=== PATIENT | male | born 1975 | race Two or more races ===

== ENCOUNTER → 2016-08-10 | Outpatient (REF) | payer MEDICARE, MEDICAID | LOC: M LAB REF 16:35 | PROVIDERS: ATTEND Nurse Practitioner Family | DX: Z02.0 Encounter for examination for admission to educational institution (principal) ==

== ENCOUNTER 2019-04-16 23:49 | Emergency (ER) | payer MEDICAID, MEDICARE ==
[~2019-04-16] VITALS: Ht 180.3 cm; Wt 79.5 kg
[2019-04-17] MEDS ORDERED: SERO1TAB PO
[2019-04-17] MEDS ORDERED: HYDR-3363 PO (00:52)
[2019-04-17] MEDS ORDERED: hydrOXYzine 25 MG TAB PO ONE (01:00)
[2019-04-17 01:11] VITALS: BP 120/66
== END 2019-04-17 01:15 | disposition home or self-care (01) ==
LOC: M ED 23:49
DX: F31.9 Bipolar disorder, unspecified (principal); F41.9 Anxiety disorder, unspecified; Z79.899 Other long term (current) drug therapy; J30.89 Other allergic rhinitis; Z91.040 Latex allergy status

== ENCOUNTER 2019-08-14 23:39 | Emergency (ER) | payer MEDICARE ==
[~2019-08-14] VITALS: Ht 180.3 cm; Wt 82.3 kg
[~2019-08-14 23:39] MED LIST: HYDR-3363 PO; SERO1TAB PO
[2019-08-14 23:40] VITALS: BP 132/58
[2019-08-15 02:47] LABS: INFLUENZA A AMPLIFICATION NEGATIVE (NEGATIVE); INFLUENZA B AMPLIFICATION NEGATIVE (NEGATIVE)
--- NOTE | 2019-08-15 07:48 | REP ---
PA and lateral chest: Comparison is 08/13/2010. The lung alfonso are clear. The cardiac size is normal. The yudi, mediastinum, and skeletal structures are unremarkable. Impression: Negative PA and lateral chest. There is no interval change. Electronically Signed by Torres Fermin MD 08/15/2019 07:39 A
== END 2019-08-15 03:40 | disposition home or self-care (01) ==
LOC: M ED 23:39
DX: Z11.9 Encounter for screening for infectious and parasitic diseases, unspecified (principal); Z20.9 Contact with and (suspected) exposure to unspecified communicable disease; F25.9 Schizoaffective disorder, unspecified; Z79.899 Other long term (current) drug therapy; Z91.040 Latex allergy status; J30.81 Allergic rhinitis due to animal (cat) (dog) hair and dander; J30.89 Other allergic rhinitis